=== PATIENT | female | born 1965 | race Caucasian/White ===

== ENCOUNTER 2018-10-02 21:19 | Emergency (ER) | payer OTHER ==
[~2018-10-02] VITALS: Ht 149.9 cm; Wt 68.0 kg
[~2018-10-02 21:19] MED LIST: ACTOS15 MG PO; ASPERCREME177.4 ML; BENAZEPRIL HCL20 MG PO; DEPAKOTE 250MG250 M1 PO; IBUPROFEN 600600 M1 PO; LIPITOR10 MG PO; NAPROSYN500 MG PO; REFRESH OPTIVE10 ML OPHTHALMIC; ROBITUSSIN100 MG/53 PO; SEROQUEL 50 MG50 MG PO; TRIPLE ANTIBIO1 EACH; TYLENOL325 MG PO
[2018-10-02 22:05] LABS: URINE BILIRUBIN NEGATIVE (Negative); URINE BLOOD 2+ (Negative); URINE CLARITY CLOUDY; URINE COLOR YELLOW; URINE GLUCOSE-RANDOM* NEGATIVE (Negative); URINE KETONES NEGATIVE (Negative); URINE NITRITE-REFLEX NEGATIVE (Negative); URINE PROTEIN (DIPSTICK) 1+ (Negative); URINE UROBILINOGEN 0.2 E.U./dl (0.2-1.0)
[2018-10-02 22:08] LABS: URINE LEUKOCYTES-REFLEX 3+ (Negative)
[2018-10-02 22:14] LABS: CASTS None Seen /LPF (None Seen); MUCUS None Seen strn/LPF (None Seen); SQUAMOUS None Seen /LPF (0-3); URINE WBC-REFLEX >25 Many /HPF (0-5)
[2018-10-02 22:15] LABS: BACTERIA-REFLEX >30 Many /HPF (None Seen); CRYSTALS None Seen /LPF (None Seen)
[2018-10-02] MEDS ORDERED: KEFLEX500 M1 PO (22:37)
[2018-10-02 22:48] VITALS: BP 137/73
== END 2018-10-02 22:48 | disposition home or self-care (01) ==
LOC: ER 21:19
PROVIDERS: Emergency Medicine
DX: S70.12XA Contusion of left thigh, initial encounter (principal); S70.11XA Contusion of right thigh, initial encounter; I10 Essential (primary) hypertension; E11.9 Type 2 diabetes mellitus without complications; E78.5 Hyperlipidemia, unspecified; Z79.899 Other long term (current) drug therapy; W18.39XA Other fall on same level, initial encounter; Y93.E1 Activity, personal bathing and showering; Y92.89 Other specified places as the place of occurrence of the external cause; Y99.8 Other external cause status

== ENCOUNTER 2021-04-15 18:29 | Inpatient (IN) | payer OTHER ==
[~2021-04-15] VITALS: Ht 147.3 cm; Wt 80.3 kg
[~2021-04-15 18:29] MED LIST changes: +KEFLEX500 M1 PO
[2021-04-15 19:10] VITALS: BP 80/60
[2021-04-15 20:13] LABS: ABSOLUTE NEUTROPHILS 8.6 thou/uL (1.4-8.2); BASOPHILS 0.9 % (0.0-2.0); EOSINOPHILS 0.5 % (0.0-3.0); HEMATOCRIT 34.8 % (37.0-47.0); LYMPHOCYTES 18.5 % (24.0-44.0); MCH 31.2 pg (26.0-34.0); MCHC 34.4 g/dL (28.0-37.0); MCV 90.6 fL (80.0-100.0); MONOCYTES 9.9 % (1.0-8.0); PLATELET COUNT 233 thou/uL (150-400); POLYS 70.2 % (36.0-66.0); RBC 3.84 mil/uL (4.20-5.00); RDW 13.7 % (10.5-14.5); WBC 12.3 thou/uL (4.0-11.0)
[2021-04-15 20:26] LABS: CALCIUM 8.6 mg/dL (8.5-10.1); CREATININE 0.7 mg/dL (0.6-1.0); POTASSIUM 5.3 mmol/L (3.5-5.1)
[2021-04-15 20:30] LABS: ALBUMIN 2.9 g/dL (3.4-5.0); TOTAL BILIRUBIN 0.2 mg/dL (0.2-1.0); TOTAL PROTEIN 7.5 g/dL (6.4-8.2)
[2021-04-15 21:45] LABS: URINE BILIRUBIN NEGATIVE (Negative); URINE BLOOD 3+ (Negative); URINE CLARITY CLOUDY; URINE COLOR YELLOW; URINE GLUCOSE-RANDOM* TRACE (Negative); URINE KETONES TRACE (Negative); URINE NITRITE-REFLEX NEGATIVE (Negative); URINE PROTEIN (DIPSTICK) NEGATIVE (Negative); URINE UROBILINOGEN 0.2 E.U./dl (0.2-1.0)
[2021-04-15 21:46] LABS: URINE LEUKOCYTES-REFLEX 3+ (Negative)
[2021-04-15 21:57] LABS: BACTERIA-REFLEX >30 Many /HPF (None Seen); CASTS None Seen /LPF (None Seen); SQUAMOUS 0-3 Few /LPF (0-3); URINE RBC 3-10 Few /HPF (NONE SEEN)
[2021-04-15 21:58] LABS: AMORPHOUS URATES Few /LPF (None Seen)
--- NOTE | 2021-04-15 22:19 | NUR ---
PERMISSION TO TREAT OBTAINED FROM SISTER
[2021-04-16] MEDS ORDERED: BENAZEPRIL HCL20 MG PO (03:17)
[2021-04-16] MEDS ORDERED: FUROSEMIDE 20 M20 M1 PO (03:18)
[2021-04-16] MEDS ORDERED: SPIRONOLACTONE25 MG PO (03:19)
[2021-04-16] MEDS ORDERED: SERTRALINE HCL100 MG PO (03:19)
[2021-04-16] MEDS ORDERED: HYDROCHLOROTH12.5 M2 PO (03:19)
[2021-04-16] MEDS ORDERED: ALENDRONATE SODI5 MG PO (03:20)
[2021-04-16] MEDS ORDERED: DEPAKOTE250 MG PO (03:20)
[2021-04-16] MEDS ORDERED: PRAZOSIN 1 MG CA1 M1 PO (03:20)
[2021-04-16 05:14] LABS: CALCIUM 8.3 mg/dL (8.5-10.1); CREATININE 0.3 mg/dL (0.6-1.0)
[2021-04-16 05:19] LABS: POTASSIUM 6.3 mmol/L (3.5-5.1)
--- NOTE | 2021-04-16 08:33 | EKG ---
[address] [address] ELECTROCARDIOGRAM REPORT Name: FIDELIALUIS ENRIQUEMALCOLM LEDEZMA Room #: 170-6 ADM IN M.R.#: [id number] Admission: 04/15/21 Attend Phys: Braulio Pulido MD Discharge: Date of : 65 Report #: [id number] [facility] ED Test Date: 2021-04-15 Test Time: 23:46:51 Pat Name: MALCOLM RAMON Department: Room: 170 6 Gender: F Planner Internship: marty : 1965 Requested By: King Figueroa Order Number: [id number] MD: Hugo Lackey Measurements Intervals [place] Rate: 60 P: 53 [place]: 126 QRS: 57 QRSD: 89 T: 47 QT: 447 QTc: 447 Interpretive Statements Sinus rhythm normal tracing Compared to ECG 11/21/2013 10:02:36 Sinus bradycardia no longer present Electronically Signed On 04-16-2021 8:33:02 CDT by Hugo Lackey [email or web address] <ELECTRONICALLY SIGNED> By: Hugo Lackey MD, [facility] 04/16/21 0833 [id number] Hugo Lackey MD, FACC /EPI
[2021-04-16 09:08] LABS: POTASSIUM 4.1 mmol/L (3.5-5.1)
[2021-04-16 11:37] VITALS: BP 114/43
--- NOTE | 2021-04-16 14:56 | NUR ---
PT ORIENTED TO ROOM AND UNIT, BED LOW AND LOCKED, SIDE RAILS UP X3, CALL LIGHT IN REACH, TELE APPLIED. WILL CONTINUE TO ASSESS.
[2021-04-16 15:10] VITALS: BP 128/83
[2021-04-16 17:13] VITALS: BP 102/59
[2021-04-16 19:01] VITALS: BP 148/68
--- NOTE | 2021-04-17 03:53 | NUR ---
RECEIVED CARE OF THIS PATIENT AT 1900. PATIENT ALERT AND ORIENTED X4. UP WITH ASSIST. PATIENT REFUSED HER ENOXAPARIN EVEN AFTER EXPLAINING THE REASON FOR IT. REFUSED TO HAVE HER LAB DRAWN AND TO HAVE A TELLOW BAND AND YELLOW SOCKS ON. PATIENT IS A FALL RISK. REMAINS ON 1500CC FR. DENIES PAIN. SLEPT MOST OF NIGHT.
[2021-04-17 05:07] VITALS: BP 119/57
[2021-04-17 07:06] VITALS: BP 114/64
[2021-04-17 09:13] LABS: HEMATOCRIT 33.1 % (37.0-47.0); HEMOGLOBIN 10.9 gm/dL (12.0-15.0); MCH 30.4 pg (26.0-34.0); MCHC 33.1 g/dL (28.0-37.0); MCV 91.9 fL (80.0-100.0); PLATELET COUNT 236 thou/uL (150-400); WBC 8.5 thou/uL (4.0-11.0)
[2021-04-17 09:16] LABS: CALCIUM 8.8 mg/dL (8.5-10.1); CREATININE 0.6 mg/dL (0.6-1.0); POTASSIUM 4.7 mmol/L (3.5-5.1)
--- NOTE | 2021-04-17 09:50 | NUR ---
Assumed care of pt at 0700. Pt denies pain. IV antibiotic infused. Refused labs in the am, but later agreed on having them drawn after provider talked to patient. RA. Up with x1 assist. Call light within reach. Fall precautions in place. Will continue to monitor.
[2021-04-17 10:39] LABS: ABSOLUTE NEUTROPHILS 3.6 thou/uL (1.4-8.2); ATYPICAL LYMPHS 5 %
[2021-04-17 10:40] LABS: ANISOCYTOSIS 1+
[2021-04-17 15:50] VITALS: BP 115/66
--- NOTE | 2021-04-17 16:18 | NUR ---
Chart review. Cm visited with Becky at bedside. Intro to cm and dcp. Discussed during los with hospitalist. [facility]. Spoke with Terence, nurse at the detention. Prior to hospital she independent with dressing and can feed herself meals. Walks with a walker. The home manages her medication. Her mom Philly and sister Kari are her guardian. Able to accept home when ready for dc. On IV ABX and she will not be able to return with any IV medication, need to by mouth. Devon called mom Philly and the [phone] number is not working. Called her sister Kari her co-guardian # [phone], she will bring copy of [facility] will when she comes for visit. Kari cares for her mom Philly and then every other weekend she brings Becky home for Wednesday. Anticipated back to [facility] when medically stable for dc.
[2021-04-17 18:58] VITALS: BP 130/70
--- NOTE | 2021-04-17 20:39 | NUR ---
ASSUMED PT CARE AT AROUND 1915 HRS.PT OBSERVED THEN WATCHING TV QUIETLY. I JUST CAME IN TO ASSESS PATIENT. SHE REFUSED TO ANSWER ANY QUESTIONS OR EVEN OPEN HER EYES. I SLOWLY REMOVED HER GLASSES, AND PATIENT YELLED AT ME. SHE STATED THAT I WOKE HER UP. REFUSED THE LOVENOX INJECTION WELL SCHEDULED PO PILL.PT COVERED HER FACE. SLOW REGULAR BREATHING. CONGESTED COUGH NOTED. CONTINUES ON FR. APPEARS TO BE IN NO DISTRESS. SHE JUST DOES NOT WANT MY PRESENCE IN HER ROOM RIGHT NOW. WILL CONTINUE CHECKING ON HER.
[2021-04-18 03:48] VITALS: BP 124/71
[2021-04-18 07:10] VITALS: BP 126/77
--- NOTE | 2021-04-18 10:09 | NUR ---
Assumed care of pt at 0700. Pt awake and alert but irritable at times. 1500mL fluid restriction. Non-productive cough. Fall precautions in place. Will continue to monitor.
--- NOTE | 2021-04-18 10:53 | NUR ---
Left message with [facility], r/t dc ready by wednesday04/19/21. Will cont following as needed.
[2021-04-18 11:44] VITALS: BP 109/60
[2021-04-18 16:20] VITALS: BP 125/68
--- NOTE | 2021-04-18 16:22 | NUR ---
POSSIBLE WEEKEND DISCHARGE: Call to give report at [phone]. Ask for fax number to fax discharge orders to. If unable to set up transportation call [facility] at [phone] Pt Height - 5'4 Pt Weight - 177 pounds ON RA on 04-18-21 (Check if needs for 02) Can Transport via Wheelchair DESTINATION: [facility] [address] [place] [id number]
[2021-04-18 20:36] VITALS: BP 95/51
--- NOTE | 2021-04-19 05:07 | NUR ---
ASSUMED PT CARE AT 1900.PT WITH NO IV ACCESS AT SHIFT CHANGE.PER REPORT,PT REF FOR NURSES TO STICK HER.PT YELLING AND WAS COMBATIVE.LACQUER SHADER ON DUTY NOTIFIED LATER SARINADR NOTED FOR IM HALDOL.IV ACCESS WAS PLACED WHEN PT WAS ASLEEP.PT NOT HAPPY WITH THE IV PLACEMENT,WAS TRYING TO RIP IT OFF.ORDER NOTED FOR NON VIOLENT RESTRAINT.PT STARTED CRYING WHEN THE RESTRAINT WAS ABOUT TO BE PLACED.EDUCATION GIVEN TO PT ON WHY SHE NEEDED THE IV ACCESS.PT AGREED NOT TO PULL IV ACCESS.RESTRAINT PUT ON HOLD.PT FINALLY SLEPT AND LEFT HER IV ACCESS IN PLACE.[employer] INTERPRETER NOTIFIED THAT RESTRAINT WAS NO LONGER NEEDED PT BECAME COMPLIANT.PT SLEEPING ON HER BED AT THIS TIME.CALL LIGHT WITHIN REACH.
[2021-04-19 07:14] VITALS: BP 129/62
--- NOTE | 2021-04-19 09:43 | NUR ---
Assumed care of pt at 0700. Pt calm this am. IV antibiotics infusing. 1500mL fluid restriction. Non-productive cough. Call light within reach. Fall precautions in place. Will continue to monitor.
[2021-04-19] MEDS ORDERED: CEFDINIR300 MG PO (12:01)
[2021-04-19 12:10] VITALS: BP 129/62
[2021-04-19 12:24] VITALS: BP 129/62
--- NOTE | 2021-04-19 12:36 | NUR ---
PT DISCHARGING TODAY BACK TO [facility] SPOKE WITH JESUS THIS AM FROM [facility] AND SHE IS AWARE OF PT DC TODAY. NOTIFIED PT'S SISTER (JORDAN) PT IS DISCHARGING TODAY AND [facility]AN ARRANGED WITH [facility] FOR [id number] TODAY. JESUS SAID TO FAX DC ORDERS AND SCRIPT TO THE [facility] OFFICE FAX#[phone] ORDERS/SCRIPT FAXED AND CONFIRMATION RECEIVED. [facility] # IS [phone].
== END 2021-04-19 16:05 | disposition home or self-care (01) | DRG 194 ==
LOC: ER 18:29 → EDBD 18:29 → EROBS 22:13 → 4S 22:13
PROVIDERS: Nurse Practitioner Acute Care; Physician Assistant; ADMIT Hospitalist; ATTEND Hospitalist
DX: J18.9 Pneumonia, unspecified organism (principal); N39.0 Urinary tract infection, site not specified; E87.1 Hypo-osmolality and hyponatremia; Q87.11 Prader-Willi syndrome; I10 Essential (primary) hypertension; E11.9 Type 2 diabetes mellitus without complications; E78.5 Hyperlipidemia, unspecified; I95.9 Hypotension, unspecified; Z87.81 Personal history of (healed) traumatic fracture; Z79.899 Other long term (current) drug therapy; Z20.822 Contact with and (suspected) exposure to COVID-19
CPT/HCPCS: 10100